=== PATIENT | male | born 1990 | race Caucasian/White ===

== ENCOUNTER 2017-01-18 10:28 | Emergency (ER) | payer OTHER ==
[~2017-01-18] VITALS: Ht 188 cm; Wt 98.1 kg
[2017-01-18 10:32] VITALS: BP 163/85
== END 2017-01-18 12:04 | disposition home or self-care (01) ==
LOC: ED 10:28
DX: S93.401D Sprain of unspecified ligament of right ankle, subsequent encounter (principal); Z79.899 Other long term (current) drug therapy; X50.9XXA Other and unspecified overexertion or strenuous movements or postures, initial encounter; Y93.67 Activity, basketball; Y92.89 Other specified places as the place of occurrence of the external cause; Y99.8 Other external cause status
CPT/HCPCS: 90715